=== PATIENT | female | born 1945 | race Caucasian/White ===

== ENCOUNTER 2017-03-31 11:23 | Day surgery (SDC) | payer MEDICARE, BC ==
[2017-03-31 12:23] LABS: BASO % 0.6 % (0-6); EOS % 3.6 % (0-6); GRAN % 60.9 % (47-80); HEMATOCRIT 47.7 % (35.0-47.0); HEMOGLOBIN 15.8 gm/dl (11.6-16.0); LYMPH % 26.3 % (16-45); MEAN CELL VOLUME 90.3 fl (81-97); MEAN CORPUSCULAR HEMOGLOBIN 29.9 pg (27-33); MEAN CORPUSCULAR HGB CONC 33.1 g/dl (32-36); MEAN PLATELET VOLUME 11.7 fl (7.4-10.4); MONO % 8.6 % (0-9); PLATELET COUNT 189 K/uL (130-400); RED BLOOD COUNT 5.28 M/uL (3.80-5.40); WHITE BLOOD COUNT W/O DIFF 6.6 K/uL (4.2-12.2)
[2017-03-31 12:32] LABS: ALB/GLOB RATIO 1.2 (1.1-1.8); ALBUMIN 4.7 gm/dL (3.5-5.0); ANION GAP 7.6 (7-16); BILIRUBIN,TOTAL 1.38 mg/dL (0.2-1.3); CARBON DIOXIDE 23.4 mmol/L (22-30); CREATININE 2.4 mg/dL (0.52-1.04); TOTAL PROTEIN 8.5 gm/dL (6.3-8.2)
[2017-03-31 12:34] LABS: INR 2.19; PARTIAL THROMBOPLASTIN TIME 41.5 SECONDS (24.5-39.1); PROTHROMBIN TIME (PATIENT) 24.8 SECONDS (9.5-12.1)
[2017-03-31] MEDS ORDERED: PROPOFOL 10 MG/ML VIAL IV ONE (15:22)
[2017-03-31] MEDS ORDERED: LIDOCAINE 2% MDV (20MG/ML) 20ML VIAL IV ONE (15:22)
--- NOTE | 2017-04-05 15:36 | Operative Note ---
DATE OF PROCEDURE: 03/31/17 PROFESSOR OF JOURNALISM: LISSET JOHNSON M.D. HISTORY: Ms. Oliveros is 71 years old, undergoing elective cardioversion. She recently developed atrial fibrillation with rapid ventricular rates and newly diagnosed cardiomyopathy. Ms. Oliveros had a history of atrial fibrillation with cardiomyopathy previously, which resolved after conversion to sinus rhythm. She is currently on Amiodarone 200 mg daily and Eliquis 5 mg b.i.d. PROCEDURE: Defibrillator pads were placed in the anterior/posterior position after informed consent was obtained. Anesthesia was present at the bedside for conscious sedation via Propofol. 200 joules biphasic countershock x1 was performed with successful conversion of A-fib to sinus rhythm. This was confirmed by the Wuzzuf interrogation of her pacemaker. Ms. Oliveros tolerated the procedure well and was discharged after postprocedure observation. FINAL IMPRESSION: 1. SUCCESSFUL CARDIOVERSION OF ATRIAL FIBRILLATION WITH RAPID RATES TO SINUS RHYTHM. 2. CONTINUE AMIODARONE 200 MG DAILY AND LONG-TERM ANTICOAGULATION. 3. FOLLOW-UP WITH ME AN OUTPATIENT. 4. WE WILL CONSIDER ELECTIVE A-FIB ABLATION DUE TO RECURRENT CARDIOMYOPATHY. JOB: [id number] [facility]
== END 2017-03-31 13:45 | disposition home or self-care (01) ==
LOC: SUR 11:23
PROVIDERS: ATTEND Internal Medicine Cardiovascular Disease
DX: I48.0 Paroxysmal atrial fibrillation (principal); I10 Essential (primary) hypertension; Z79.4 Long term (current) use of insulin; Z95.0 Presence of cardiac pacemaker; I50.9 Heart failure, unspecified; E11.9 Type 2 diabetes mellitus without complications
CPT/HCPCS: 80053; 85025; 85610; 85730; 93005; 93010